=== PATIENT | female | born 1935 | race Caucasian/White ===

== ENCOUNTER → 2021-07-13 13:51 | Outpatient (BNVA) | payer MEDICARE, SELFPAY | PROVIDERS: Visit Provider Family Medicine | DX: R05.3 Chronic cough (principal); I70.0 Atherosclerosis of aorta; R91.1 Solitary pulmonary nodule | CPT/HCPCS: 71046; 80053; 85025 ==

== ENCOUNTER 2021-08-03 14:09 | Outpatient (CLI) | payer MEDICARE, SELFPAY ==
--- NOTE | 2021-08-03 14:38 | XRR_ITS ---
PROCEDURE INFORMATION: Exam: XR Chest Exam date and time: 08/03/2021 2:38 PM Age: 85 years old Clinical indication: Condition or disease; Lung condition and disease; Other: Rll pulmonary nodule TECHNIQUE: Imaging protocol: XR of the chest. Views: 2 views. COMPARISON: CR XR chest 2V* [id number] 07/13/2021 1:56 PM FINDINGS: Lungs: Minor bibasilar scarring. Previously questioned nodule is less conspicuous on today's exam and appears to reflect scarring. No consolidation. Pleural spaces: Unremarkable. No pleural effusion. No pneumothorax. Heart/Mediastinum: Unremarkable. No cardiomegaly. Bones/joints: Visualized osseous structures are intact. XR/XR chest 2V* [id number] IMPRESSION: Previously questioned nodule is less conspicuous on today's exam and appears to reflect scarring. No acute findings.
== END 2021-08-03 14:10 | disposition home or self-care (01) ==
PROVIDERS: PCP Family Medicine; Visit Provider Family Medicine
DX: R91.1 Solitary pulmonary nodule (principal)
CPT/HCPCS: 71046